=== PATIENT | male | born 1990 | race Caucasian/White ===

== ENCOUNTER 2018-09-24 17:13 | Observation (INO) | payer SELFPAY ==
[~2018-09-24 17:13] MED LIST: Dexamethasone 20 MG/5 ML VIAL ONE; Glycopyrrolate 0.2 MG/ML 5 ML SYRINGE ONE; Ketorolac Tromethamine 30 MG/ML VIAL ONE; Lidocaine 1% PF 5 ML VIAL ONE; Ondansetron PF 4 MG/2 ML Vial ONE; PROPOFOL 200 MG/20 ML VIAL ONE; Rocuronium Bromide 10 MG/ML (10ML VIAL) ONE; ePHEDrine 50 MG/ML VIAL ONE
--- NOTE | 2018-09-24 17:37 | RAD ---
XR Hand Rt 3 View STANDARD History: [Pain. Injury.] Comparison: None. Findings: The comminuted fracture distal phalanx middle finger without significant displacement altho ugh there is a defect in the dorsal aspect is skin and likely an open wound. Fracture is likely intra-articular. Impression: Open intra-articular comminuted fracture distal phalanx middle finger with soft tissue d egloving.
[2018-09-24] MEDS ORDERED: Lidocaine 1% PF 5 ML VIAL ONE (17:39)
[2018-09-24] MEDS ORDERED: Adacel (T-DAP) 0.5 ML SYRINGE ONE (18:17)
[2018-09-24] MEDS ORDERED: CEFAZOLIN 2 GM in Premix Bag 1 BAG IVPB SCH (18:30)
[2018-09-24] MEDS ORDERED: Gentamicin Sulfate 80 MG in Premix Bag 1 BAG IVPB SCH (18:30)
[2018-09-24] MEDS ORDERED: Penicillin G Potassium 3 MILL.UNITS in Sodium Chloride 0.9% 100 ML IVPB SCH (18:30)
[2018-09-24] MEDS ORDERED: Morphine 4 MG/ML VIAL ONE (18:51)
[2018-09-24] MEDS ORDERED: Gentamicin 80 MG/2 ML VIAL ONE (19:07)
[2018-09-24] MEDS ORDERED: Thrombin 5000 UNITS/5 ML VIAL ONE (19:34)
[2018-09-24] MEDS ORDERED: Bacitracin Zinc Ointment 30 gm TUBE ONE (19:34)
[2018-09-24] MEDS ORDERED: Bupivacaine PF 0.5% 30 ML VIAL ONE (19:34)
[2018-09-24] MEDS ORDERED: Sodium Chloride 0.9% 30 ML ONE (19:34)
[2018-09-24] MEDS ORDERED: Fentanyl 100 MCG/2 ML VIAL ONE ×2 (19:38→20:16)
[2018-09-24] MEDS ORDERED: Famotidine/PF 20 mg/2ml Vial ONE (19:38)
[2018-09-24] MEDS ORDERED: Meperidine HCl/PF 25 MG/ML VIAL ONE (19:38)
[2018-09-24] MEDS ORDERED: Promethazine HCl 25 MG/ML VIAL SLOW IVP PRN (21:17)
[2018-09-24] MEDS ORDERED: Ondansetron HCl/PF 4 MG/2 ML Vial IVP PRN (21:17)
[2018-09-24] MEDS ORDERED: Promethazine HCl 25 MG/ML VIAL IM PRN ×2 (21:17→21:54)
[2018-09-24] MEDS ORDERED: Meperidine HCl/PF 25 MG/ML VIAL SLOW IVP PRN (21:17)
[2018-09-24] MEDS ORDERED: Morphine 4 MG/ML VIAL SLOW IVP PRN (21:54)
[2018-09-24] MEDS ORDERED: Ondansetron PF 4 MG/2 ML Vial IV PRN (21:54)
[2018-09-24] MEDS ORDERED: HYDROcodone/Acetaminophen 5/325 mg Tablet PO PRN (21:54)
[2018-09-24] MEDS ORDERED: traMADol HCl 50 MG TAB PO PRN (21:54)
[2018-09-24] MEDS ORDERED: Acetaminophen 325 MG TAB PO PRN (21:54)
[2018-09-24] MEDS ORDERED: Bisacodyl 10 MG SUPP PR PRN (21:54)
[2018-09-24] MEDS ORDERED: Fentanyl 100 MCG/2 ML VIAL SLOW IVP PRN (21:54)
[2018-09-24] MEDS ORDERED: Promethazine HCl 25 MG/ML VIAL ONE (21:57)
[2018-09-24] MEDS ORDERED: Meperidine HCl/PF 25 MG/ML VIAL IM PRN (21:58)
[2018-09-24] MEDS ORDERED: Ketorolac Tromethamine 30 MG/ML VIAL IVP PRN (21:58)
[2018-09-24] MEDS ORDERED: RENALLY ADJUST ANTIBIOTICS FS SCH (22:00)
[2018-09-24] MEDS: Sodium Chloride 0.9% 1,000 ML IV SCH (22:35)
[2018-09-24 23:21] VITALS: BMI 23.1
[2018-09-25] MEDS: Ketorolac Tromethamine 30 MG/ML VIAL IVP SCH ×4 (00:36→19:33)
--- NOTE | 2018-09-25 02:37 | OP ---
DATE OF PROCEDURE: 09/24/2018 PREOPERATIVE DIAGNOSES: 1. Open grade 1 fracture, distal phalanx, transverse, with completely displaced nail bed laceration. 2. Wound, 3 cm, with nail bed involvement. 3. Complex delayed nail bed laceration. POSTOPERATIVE DIAGNOSES: 1. Open grade 1 fracture, distal phalanx, transverse with completely displaced nail bed laceration. 2. Wound, 3 cm, with nail bed involvement. 3. Complex delayed nail bed laceration. PROCEDURES PERFORMED: 1. Debridement of wound. 2. Debridement of material associated with open fracture. 3. Closure of wound, 3 cm. 4. Nail bed repair, complex. 5. C-arm supervision. 6. Open reduction and internal fixation, distal phalanx fracture. 7. Short-arm splint application. ESTIMATED BLOOD LOSS: 10 mL. TOURNIQUET TIME: 39 minutes. IMPLANT: Yes, 0.035 K-wire. INDICATIONS: The patient open fracture, almost an avulsion with nail bed injury and associated 3 cm complete skin laceration, still left him with intact circulation and neurovascular bundles. DESCRIPTION OF PROCEDURE: After successful general LMA technique by [facility], the limb was prepped and draped. The patient had the tourniquet inflated after the limb exsanguination to 250 mmHg pressure. He received before inflation 2 mL of 0.5% Marcaine metacarpophalangeal block level. The patient then had debridement of the wound and the fracture using following instrumentations; 1. Techniques: a. Excisional technique. b. Instrumentation used: Curette, freer, 11 blade knife, [place] blade, and 5 L Pulsavac with antibiotics. Once debridement had been done, this included the wound edges and irrigation completed, we then reduced the displaced laceration, the fracture remained nondisplaced after this debridement, but we had to extend the eponychial incision 1 cm proximal to visualize completely the transverse fracture line as well as the complex germinal matrix laceration. Once we did this, we used 5-0 nylon . This aligned the wound edge to help align the fracture near anatomically. We then corrected the nail bed displacement, reduced all the bone and passed a 0.035 K-wire successfully down the shaft in the frontal sagittal plane. Now, the fracture was anatomic. Extension was intact and flexion was intact with tenodesis effect testing and now we repaired the complex nail bed laceration, which was stellate, but still had enough nail bed tissue. There was complete contact on both sides of the laceration using a 5-0 chromic interrupted fashion. The tourniquet was deflated. Hemostasis was obtained. All wounds were completely closed. Bulky dressing was applied. The patient left the operating room with a short-arm splint and no evidence of anesthetic or operative complication. Job ID: [id number]
[2018-09-25] MEDS: Vancomycin HCl 1 GM in Premix Bag 1 BAG IVPB SCH ×2 (06:05→15:10)
--- NOTE | 2018-09-25 07:24 | RAD ---
XR Finger(s) Rt Min 2 View HISTORY: Intraoperative film. COMPARISON: Previous hand film done 09/24/2018. FINDINGS: The C-arm view show pin placement through the distal phalanx of the middle finger. IMPRESSION: Pin placement through distal phalanx of middle finger.
[2018-09-25] MEDS: Sodium Chloride 0.9% 1,000 ML IV SCH (09:00)
[2018-09-25] MEDS ORDERED: TETANUS AND DIPHTHERIA TOX/PF 0.5 ML DISP.SYRIN IM SCH (09:00)
[2018-09-25] MEDS ORDERED: Aspirin 81 mg Enteric Coated Tablet PO SCH (09:00)
[2018-09-25 12:16] VITALS: BP 92/51; TEMP 98.8
[2018-09-25] MEDS: HYDROcodone/Acetaminophen 10/325 mg Tablet PO PRN ×3 (16:38→19:26)
--- NOTE | 2018-09-26 13:46 | DIS ---
DATE OF ADMISSION: 09/24/2018 DATE OF DISCHARGE: 09/25/2018 ADMISSION DIAGNOSES: 1. Open long finger proximal phalanx fracture. 2. Wound with nail bed involvement, proximal phalanx, middle finger. 3. Wound was approximately 3 cm. HOSPITAL PROCEDURES: 1. Debridement of material associated with open fracture. 2. Debridement of wound. 3. Closure of wound, 3 cm. 4. Nail bed repair, complex. 5. Open reduction and internal fixation of distal phalanx fracture. 6. C-arm supervision. 7. Application of short-arm splint. 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 This required intervention with negotiation with our surgeons to place this surgery prior to above those that were less urgent. Once this was accomplished, he was brought to the operating room as an emergency. He had all the procedures performed above, tolerated well with only minimal deep contamination and minimal superficial contamination despite oil field environment. He was then placed on 24 hours of IV antibiotic prophylaxis, he had no fever, chills, and circulation made intact, he was prepared for discharge. DISCHARGE DIAGNOSES: See above. DISCHARGE PLAN: Diet will be regular. He will not work with that hand for at least 7-10 days until we know the wound is stable. His , and he expressed upon discharge they desire to be treated in [place] since he may not work in this area and his home is in that area. I informed them that he has lots of choices for hand surgeons in [place], [place], with the [employer] to help him find one. So I would not waste his time and have him to make an appointment if patient cannot be evaluated. His diet is regular. He was given clindamycin prophylactic antibiotics 300 mg, tramadol for pain and Toradol for pain and inflammation. Job ID: [id number]
== END 2018-09-25 19:40 | disposition home or self-care (01) ==
LOC: ERS 17:13 → SDC/OP 18:33 → INTOOBSV 20:18 → SURG B 20:18 → 3SE 22:22
PROVIDERS: ADMIT Orthopaedic Surgery Hand Surgery; ATTEND Orthopaedic Surgery Hand Surgery
PROC: 0PST04Z Reposition Right Finger Phalanx with Internal Fixation Device, Open Approach (ICD-10-PCS; principal; 2018-09-24)
PROC: 0HQQXZZ Repair Finger Nail, External Approach (ICD-10-PCS; 2018-09-24)
DX: S67.192A Crushing injury of right middle finger, initial encounter (principal); S62.632B Displaced fracture of distal phalanx of right middle finger, initial encounter for open fracture; W23.0XXA Caught, crushed, jammed, or pinched between moving objects, initial encounter; Y92.65 Oil rig as the place of occurrence of the external cause; Y99.0 Civilian activity done for income or pay
CPT/HCPCS: 76000; 90471; 90715; 96361; 96366; 96367; 96374; 96375; 96376; G0378; J0131; J0690; J1100; J1580; J1885; J2001; J2175; J2270; J2405; J2540; J2550; J2704; J3010; J3370; J3490; S0020; S0028